=== PATIENT | male | born 1985 | race Caucasian/White ===

== ENCOUNTER 2023-12-06 16:24 | Emergency (ER) | payer OTHER, SELFPAY ==
--- NOTE | 2023-12-06 16:26 | ED.GENADULT ---
HPI - General Adult General Chief complaint: Ear Stated complaint: ears/dry skin Time Seen by Provider: 12/06/23 16:33 Source: patient and RN notes reviewed Mode of arrival: ambulatory Limitations: no limitations History of Present Illness HPI narrative: 37-year-old male presents to the [facility] with complaints dry flaky skin and itchy ear canals for several months Reports he has had dry patches on his skin, face, right eyelid and eyebrow, none seen on exam Patient denies any past medical history. Patient does use Q-tips, ear buds when working out and ear protection at work Related Data Home Medications Medication Instructions Recorded Confirmed No Home Medications 12/06/23 12/06/23 Allergies Allergy/AdvReac Type Severity Reaction Status Date / Time No Known Allergies Allergy Verified 12/06/23 16:32 Review of Systems Review of Systems: All systems reviewed & are unremarkable except as noted in HPI and below Constitutional: Constitutional: Reports no additional constitutional complaints Eyes: Eyes: Reports no additional eye complaints ENT: Reports as per HPI Cardiovascular: Cardiovascular: Reports no additional cardiovascular complaints, Denies chest pain and Denies dyspnea Respiratory: Respiratory: Reports no additional respiratory complaints, Denies chest congestion, Denies cough and Denies dyspnea Gastrointestinal: Gastrointestinal: Reports no additional gastrointestinal complaints, Denies abdominal pain, Denies nausea and Denies vomiting Musculoskeletal: Musculoskeletal: Reports no additional musculoskeletal complaints Integumentary/Breasts: Skin/Breast: Reports system reviewed and no additional complaints, except as docu Neurologic: Reports system reviewed and no additional complaints, except as documented Psychiatric: Psychiatric: Reports no additional psychiatric complaints Allergic/Immunologic: Allergic/Immunologic: Reports no additional allergic/immunologic complaints [facility] Past Medical History Medical History (Updated 12/06/23 @ 19:41 by Maddison Su APRN) Patient denies medical problems Surgical History Surgical History (Updated 12/06/23 @ 19:41 by Maddison Su APRN) H/O inguinal hernia repair Social History Social History (Updated 12/06/23 @ 19:41 by Maddison Su APRN) Living arrangements: with family Gender identity (if verbalized by the patient): Male Comments At the time of my signature, I reviewed and agree with the nursing past medical, surgical, social, and family history. There is no relevant family history pertinent to the patient complaint. Exam Const: General: cooperative, healthy appearing, comfortable, no acute distress, well developed, alert and well nourished Nutritional Appearance: well nourished Orientation/consciousness: patient oriented x3 Limitations: no limitations HENMT: Head: normal to inspection Ears: hearing grossly normal bilaterally, external ears normal, TM's normal bilaterally and Abnormal EAC present other (Very dry flaky skin, bilateral); no cerumen impaction, no excessive cerumen, no erythema and no edema Face/Nose/Sinus: Normal external nose present, Normal nares present, Normal nasal mucous membranes and turbinates present, normal facial exam and face symmetric Face and sinus: normal facial exam and face symmetric Mouth: Yes Normal oral and palatal mucosa present, Yes lip normal and Yes moist mucous membranes Throat: posterior oropharynx normal, uvula midline and no uvular edema Eyes: General: appearance normal, both eyes and all related structures Alignment and Position: alignment normal Periorbital: periorbital findings normal Pupils: Equal, round and reactive pupils present EOM: EOMs intact bilaterally Neck: Neck: normal visual inspection, full ROM, no lymphadenopathy and no meningeal signs Chest: Chest palpation & inspection: normal inspection of the chest Resp: Effort & Inspection: normal respiratory effort and able
[2023-12-06 16:29] VITALS: BP 157/95; PULSE 91; RESP 16; TEMP 37.1; O2SAT 99
[2023-12-06 16:45] VITALS: BP 157/95; PULSE 91; RESP 16; TEMP 37.1; O2SAT 99
== END 2023-12-06 16:56 | disposition home or self-care (01) ==
PROVIDERS: Emergency Provider Nurse Practitioner
DX: H93.8X3 Other specified disorders of ear, bilateral (principal)
CPT/HCPCS: 99211; G0463

== ENCOUNTER 2025-03-01 16:09 | Emergency (ER) | payer OTHER, SELFPAY ==
--- OUTSIDE RECORDS SUMMARY | 2025-03-01 16:11 | XMS_ITS | Clinical Summary ---
Author Organization [facility] Address [address], [facility] [address] [place] [address] Phone Care Team Providers Care Physical Laboratory Assistant Name Role Phone Joe Nascimento MD Primary Care Provider [phone] Medications meloxicam (MOBIC) 7.5 MG Tablet Take 15 mg by mouth daily. Active mebendazole (VERMOX) 100 MG Chewable Tablet Take 1 Tablet by mouth daily. Take now and repeat dose in 2 weeks 2 Tablet 12/07/2024 Active amLODIPine (NORVASC) 10 MG Tablet TAKE 1 TABLET BY MOUTH EVERY DAY 30 Tablet 3 12/28/2024 Active Active Problems Problem Noted Date Diagnosed Date Essential hypertension, benign 10/07/2024 Generalized anxiety disorder 07/14/2024 Hyperhidrosis Encounters Date Type Department Care Team Description 12/28/[facility] [address] [place] [address] Joe Nascimento MD Medication Refill 12/07/2024 Telephone [facility] Internal Medicine [facility] [address] [place] [address] Joe Nascimento MD from Last 3 Months Family History Medical History Relation Name Comments No Known Problems Brother Diabetes Father No Known Problems Mother No Known Problems Sister Relation Name Status Comments Brother Alive Father Alive Mother Alive Sister Alive Social History Tobacco Use Types Packs/Day Years Used Date Smoking Tobacco: Former Cigarettes 0.5 8 Passive Smoke Exposure: Past Smokeless Tobacco: Never Tobacco Cessation:Counseling Given: No Alcohol Use Standard Drinks/Week Comments No 0 (1 standard drink = 0.6 oz pur e alcohol) [facility] Utilities Answer Date Recorded In the past 12 months has th e electric, gas, oil, or water company threatened to shut off services in your home? No 10/07/2024 Social Connection and Isolation Panel Answer Date Recorded In a typical week, how many times do you talk on the phone with family, friends, or neighbors? Twice a week 10/07/2024 How often do you get together with friends or re latives? Once a week 10/07/2024 Attends [employer] Services Not on file 10/07 Active Member of Clubs or Organizations Not on f ile 10/07/2024 Attends Club or Organization Meetings Not on oniel e 10/07/2024 Marital Status Not on file 10/07/2024 AUDIT-C Answer Date Recorded Q1: How often do you have a drink containing alc ohol? 2-4 times a month 10/07/2024 Q2: How many drinks containi ng alcohol do you have on a typical day when you are drinking? 5 or 6 10/07/2024 Frequency of Binge Drinking Not on file 09/13 Overall Financial Resource Strain (CARDIA) Answe r Date Recorded How hard is it for you to pa y for the very basics like food, housing, medical care, and heating? Somewhat hard 10/07/2024 PHQ-2 Answer Date Recorded Total Score - Questions 1-9 0 08/13 [facility] - Occupational Stress Questionnaire Answer Date Recorded Do you feel stress - tense, restless, nervous, or anxious, or unable to sleep at night because your mind is troubled all the time - these days? Rather much 10/07/2024 Exercise Vital Sign Answer Date Recorde d On average, how many days pe r week do you engage in moderate to strenuous exercise (like a brisk walk)? 5 days 10/07/2024 On average, how many minutes do you engage in exercise at this level? 70 min 10/07/2024 Hunger Vital Sign Answer Date Recorded Within the past 12 months, y ou worried that your food would run out before you got the money to buy more. Never true 10/07/19 25 Within the past 12 months, t he food you bought just didn't last and you didn't have money to get more. Never true 10/07/2024 PRAPARE - Transportation Answer Date Re corded In the past 12 months, has l ack of transportation kept you from medical appointments or from getting medications? No 09/13 In the past 12 months, has l ack of transportation kept you from meetings, work, or from getting things needed for daily living? No 10/07/2024 Housing Stability Vital Sign Answer Kareem e Recorded In the last 12 months, was t here a time when you were not able to pay the mortgage or rent on time? No 10/07/2024 In the past 12 months, how m any times have you moved where you were living? 0 10/07/2024 At any time in the past 12 m [facility], were you homeless or living in a custodial (including now)? No 10/07/2024 Sexually Active Control Partners Comments Yes Sex and Gender Information Value Date Recorded Sex Assigned at Not on file Legal Sex Male 12:03 AM CDT Gender Identity Not on file Sexual Orientation Not on file Last Filed Vital Signs Vital Sign Reading Time Taken Comments Blood Pressure 158/98 10/07/2024 7:58 AM HEMOTHERAPIST Pulse 94 10/07/2024 7:58 AM HEMOTHERAPIST Temperature 36.5 C (97.7 F) 10/07/2024 7:58 AM HEMOTHERAPIST Respiratory Rate 17 08/08/2023 7:59 PM HEMOTHERAPIST Oxygen Saturation 97% 10/07/2024 7:58 AM HEMOTHERAPIST Inhaled Oxygen Concentration - - Weight 94.3 kg (208 lb) 10/07/2024 7:58 AM HEMOTHERAPIST Height 188 cm (6' 2) 10/07/2024 7:58 AM HEMOTHERAPIST Body Mass Index 26.71 10/07/2024 7:58 AM HEMOTHERAPIST Plan of Treatment Health Maintenance Due Date Last Done Comments Hepatitis C Virus (HCV) Screening 1983 Human Papillomavirus (HPV) Immunization (1 - Male 3-dose series) 12/10/1998 Hepatitis B Immunization (1 of 3 - 19+ 3-dose series) 12/10/2002 SARS-COV-2 Immunization ( season) 2024 Influenza Immunization (#1) 2025 Respiratory Syncytial Virus (RSV) Immunization (Adult) (1 - 1-dose 75+ series) 12/10/2058 DTaP/Tdap/Td Immunization Discontinued 01/19/2022 TdaP Immunization Completed 01/19/2022 Meningococcal Immunization (ACWY) Aged Out No longer eligible based on patient's age to complete this topic Pneumococcal Immunization Combined Aged Out No longer eligible based on patient's age to complete this topic Rotavirus Immunization Aged Out No lo nger eligible based on patient's age to complete this topic Insurance [facility] Care Teams Physical Laboratory Assistant Relationship Specialty Start Date End Date Joe Nascimento MD [address] [place] [address] PCP - General Internal Medicine 08/03/24
--- OUTSIDE RECORDS SUMMARY | 2025-03-01 16:11 | XMS_ITS | Clinical Summary ---
Author Organization [facility] [employer] Address [address] [place] [address] Care Team Providers Care Machinist Outside Name Role Phone Unknown, Provider Primary Care Provider Unavaila ble Source Comments [facility],non-owned Affiliates and Associated Physician Practices is amultiple site organization consisting of ambulatory clinics and hospital sitesin [place], [place], [place] and [place]. This disclosure is being madepursuant to the Care Everywhere program and may not contain all information available regarding this patient. Last updated 18.[facility] [employer] Allergies No known active allergies Medications * Be aware that medications may not be up to date on this document. Alwaysverify current medications with the patient. azithromycin (ZITHROMAX) 250 MG tabletIndicatio ns:Pharyngitis Take 2 tablets now, then 1 tablet daily for 4 days. Reasons: Throat Infection 6 Tab 7 Active Social History Tobacco Use Types Packs/Day Years Used Date Smoking Tobacco: Never Sex and Gender Information Value Date Recorded Sex Assigned at Not on file Legal Sex Male 9:54 AM PROGRAM CLINICIAN Gender Identity Not on file Sexual Orientation Not on file Last Filed Vital Signs Vital Sign Reading Time Taken Comments Blood Pressure 140/78 10/01/2016 10:04 AM PROGRAM CLINICIAN Pulse 108 10/01/2016 10:04 AM PROGRAM CLINICIAN Temperature 37.6 C (99.6 F) 10/01/2016 10:04 AM PROGRAM CLINICIAN Respiratory Rate 18 10/01/2016 10:04 AM PROGRAM CLINICIAN Oxygen Saturation 97% 10/01/2016 10:04 AM PROGRAM CLINICIAN Inhaled Oxygen Concentration - - Weight 79.4 kg (175 lb) 10/01/2016 10:04 AM PROGRAM CLINICIAN Height 188 cm (6' 2) 10/01/2016 10:04 AM PROGRAM CLINICIAN Body Mass Index 22.47 10/01/2016 10:04 AM PROGRAM CLINICIAN Plan of Treatment Health Maintenance Due Date Last Done Comments LIPID TESTING 1983 HIV SCREENING 12/10/1998 HEPATITIS C SCREENING 12/06/2001 DTAP/TDAP/TD VACCINES (1 - Tdap) 12/10/2002 HEPATITIS B VACCINE (1 of 3 - 19+ 3-dose series) 12/10/2002 HPV VACCINE (1 - 3-dose SCDM series) 12/10/2010 COVID-19 VACCINE (1 - 2023-2 5 season) 2024 DEPRESSION SCREENING 08/12/2024 INFLUENZA VACCINE (#1) 2025 ZOSTER VACCINE (1 of 2) 12/10/2033 HIB VACCINE Aged Out No longer eligi ble based on patient's age to complete this topic MENINGOCOCCAL (Group B) VACC INE SHARED DECISION-MAKING Aged Out No longer eligibl e based on patient's age to complete this topic MENINGOCOCCAL GROUPS A/C/Y/W VACCINE Aged Out No longer eligible b ased on patient's age to complete this topic PNEUMOCOCCAL VACCINE Aged Out No long er eligible based on patient's age to complete this topic Insurance Care Teams Machinist Outside Relationship Specialty Start Date End Date Unknown, Provider PCP - General 10/01/16
--- OUTSIDE RECORDS SUMMARY | 2025-03-01 16:11 | XMS_ITS | Data Portability ---
Author Organization [facility] Address [address] [place] [address] Assessment No assessment recorded. Plan of Treatment Reminders Order Date Submit Date Provider Last Modified By Organization Details Last Modified Time Details Appointments None recorded. Lab None recorded. Referral None recorded. Procedures None recorded. Surgeries None recorded. Imaging None recorded. Medication Orders mometasone 0.1 % topical cream 2023 024 [id number], [address], [place], [address], 10:16:40 Patient TargetsNo targets recorded. Patient InstructionsNo instructions recorded. Reason for Referral None Reported. Medical Equipment None Reported. Allergies No known drug allergies Medications Name Sig Start Date Stop Date Status Note LastModified by Organization Details LastModified Time triamcinolo ne acetonide 0.5 % topical cream APPLY TO AFFECTED AREA TWICE A DAY FOR 7 DAYS 04/21 completed Not Available Not Available Not Available meloxicam 7.5 mg tablet TAKE 1 TABLET(S) BY MOUTH DAILY DIRECTED WITH FOOD active Not Available Not Available No t Available naproxen 500 mg tablet TAKE 1 TABLET BY MOUTH TWICE A DAY NEEDED FOR MILD OR MORE SEVERE PAIN 04/21 completed Not Available Not Available Not Available mometasone 0.1 % topical cream APPLY SPARINGLY TO AFFECTED AREA EVERY DAY active Not Available Not Available No t Available fluocinolon e acetonide oil 0.01 % ear drops ADMINISTE R 5 DROPS INTO EACH EAR 2 TIMES A DAY FOR 7 DAYS. 04/21 completed Not Available Not Available Not Available Vitals Date Recorded Body height Body mass index (BMI) Body weight Heart rate Respiratory rate Body temperature Systolic And Diastolic Provider Name and Address Organization Details Last Updated DateTime 4 187.96 cm 26.2 kg/m2 54781.7 7 g 84 /min 16 /min 98.2 [degF] 153/103 mm[Hg] Suni Morris MA [facility] 10:02:42 Social History Question Answer Notes LastModified by Organizat ion Details LastModified Time Tobacco Smoking Status Never Smoker Suniaury Morris MA null, [facility] 04/21/2024 09:59:19 Are You Blind Or Do You Have Difficulty Seeing? No Information n ot available 04/21/2024 What Is Your Level Of Caffeine Consumption? Heavy Information not available 04/21/2024 In The 14 Days Before Symptom Onset, Have You Had Close Contact With A Laboratory-confirm ed COVID-19 While That Case Was Ill? No Information n ot available 04/21/2024 In The 14 Days Before Symptom Onset, Have You Had Close Contact With A Person Who Is Under Investigation For COVID-19 While That Person Was Ill? No Information not available 04/21/2024 Have You Been To An Area Known To Be High Risk For COVID-19? No Information not available 04/21/2024 Are You Deaf Or Do You Have Serious Difficulty Hearing? No Information not available 04/21/2024 What Type Of Diet Are You Following? REGULAR Information n ot available 04/21/2024 Who Is Your Employer? [employer] Information not available 04/21/2024 What Was The Date Of Your Most Recent Tobacco Screening? 04/21/2024 Information not available 04/21/2024 Do You Have Any Pets? No Information not available 04/21/2024 Sex: Male Functional Status Question Answer Note LastModified by Organizat ion Details LastModified Time Do you use any illicit or recreational drugs? No Information not available 04/21/2024 Do you or have you ever used any other forms of tobacco or nicotine? No Information not available 04/21/2024 What is your level of alcohol consumption? Occasional Rarely Information not available 04/21/2024 Are you currently employed? Yes Information not available 04/21/2024 What is your exercise level? Occasional Information not available 04/21/2024 What type of noise exposure are you exposed to? Industrial Information not available 04/21/2024 Mental Status Question Answer Note LastModified by Organization D etails LastModified Time Do you feel stressed (tense, restless, nervous, or anxious, or unable to sleep at night)? [id number] Information not available 04/21/2024 Family History Nothing Reported. Medical History No medical history recorded. Past Encounters Encounter ID Performer Location Encounter Start Date Encounter Closed Date Diagnosis/Indication Diagnosis SNOMED-CT Code Diagnosis ICD10 Code Diagnosis Note [id number] Sam Aguillon MD [facility] (Adult Med) [address] [place] [address] 04/21/2024 09:48:03 04/24/2024 12:57:26 Dermatitis of external ear 354022798 H60.93 Health Concerns Section Related Observation LastModified by Organization Detai ls LastModified Time None Recorded Concern Status LastModified by Organization Details LastModified Time None Recorded Advance Directives Directive None Recorded Payers Insurance Date Sequence Insurance Name Policy Number Policy Jesus Covered Member ID Jesus Member ID Guarantor Name 05/30/2024 1 [facility] [id number] Isak Edie [id number] Isak Edie Notes Date Note Type Note Provider Name and Address Organization Details Recorded Time 04/21/2024 text/html Pt complaining o f dry itchy ears for the last 6 months. He uses q-tips but not drops Sam Aguillon MD Attn: [address] [facility], [place], [address], [facility] 04/21/2024 10:16:53
[2025-03-01 16:14] VITALS: BP 149/96; PULSE 92; RESP 20; TEMP 37.1; O2SAT 98
--- NOTE | 2025-03-01 16:14 | ED_ITS ---
HPI - Skin/Abscess/Foreign Bdy General Chief complaint: Skin/Abscess/Foreign Body Stated complaint: wasp sting / swelling Time Seen by Provider: 03/01/25 16:17 Source: patient, RN notes reviewed and old records reviewed Mode of arrival: ambulatory Limitations: no limitations History of Present Illness HPI narrative: 39-year-old male presents to the [facility] with multiple stings to the right leg, left leg and right ear. States that he was stung yesterday. Did take Benadryl last night, no other treatment prior to arrival. States that he was done 2 weeks ago and this time the swelling is worse than it was 2 weeks ago. Onset (ago): day(s) (1) Related Data Home Medications ?Medication ?Instructions ?Recorded ?Confirmed ?Last Taken ?Type amlodipine 10 mg tablet mg 03/01/25 Unknown History Allergies Allergy/AdvReac Type Severity Reaction Status Date / Time No Known Allergies Allergy Verified 03/01/25 16:20 Review of Systems Review of Systems: All systems reviewed & are unremarkable except as noted in HPI and below Constitutional: Constitutional: Reports no additional constitutional complaints ENT: Reports system reviewed and no additional complaints, except as documented Cardiovascular: Cardiovascular: Reports no additional cardiovascular complaints, Denies chest pain and Denies dyspnea Respiratory: Respiratory: Reports no additional respiratory complaints, Denies chest congestion, Denies cough and Denies dyspnea Musculoskeletal: Musculoskeletal: Reports no additional musculoskeletal complaints Integumentary/Breasts: Skin/Breast: Reports as per HPI PMFSH Past Medical History Medical History Patient denies medical problems Surgical History Surgical History H/O inguinal hernia repair Social History Social History Living arrangements: with family Gender identity (if verbalized by the patient): Male Comments At the time of my signature, I reviewed and agree with the nursing past medical, surgical, social, and family history. There is no relevant family history pertinent to the patient complaint. Exam Const: General: cooperative, healthy appearing, comfortable, no acute distress, well developed, alert and well nourished Nutritional Appearance: well nourished Orientation/consciousness: patient oriented x3 Limitations: no limitations HENMT: Head: normal to inspection Ears: hearing grossly normal bilaterally and external ears normal Mouth: Yes Normal oral and palatal mucosa present, Yes lip normal, Yes tongue normal and Yes moist mucous membranes Throat: posterior oropharynx normal, uvula midline and no uvular edema Eyes: General: appearance normal, both eyes and all related structures Alignment and Position: alignment normal Neck: Neck: normal visual inspection, full ROM, no lymphadenopathy and no meningeal signs Chest: Chest palpation & inspection: normal inspection of the chest Resp: Effort & Inspection: normal respiratory effort and able to speak in complete sentences Auscultation: clear to auscultation bilaterally, no crackles, no rales, no rhonchi and no wheezes Cardio: Rate: regular rate Skin: General skin exam: normal color and no rashes or lesions noted Other: Multiple stings noted to the bilateral lower legs, 1 to the right ear. Swelling is noted around the site of the sting. Neuro: General: patient oriented x3, gait normal, moves all extremities and no meningeal signs Cognition (Neuro): normal cognition Speech: normal speech Gait exam (Neuro): Normal gait present Extrem: General: normal to inspection, full ROM, capillary refill normal and normal gait Psych: Appearance: grossly normal and well kempt Mental Status: mental status grossly normal Speech and movement: Normal speech and movement present and Clear speech present Affect: normal affect Attitude: cooperative Course Course Level of Care: Express Care Visit Vital Signs Vital signs: Vital Signs Temperature 98.8 F 03/01/25 16:14 Pulse Rate 92 03/01/25 16:14 Respiratory Rate 03/01/25 16:14 Blood Pressure 149/96 H 03/01/25 16:14 Pulse Oximetry 98 03/01/25 16:14 Oxygen Delivery Room Air 03/01/25 16:14 Temperature 98.8 F 03/01/25 16:14 Pulse Rate 92 03/01/25 16:14 Respiratory Rate 03/01/25 16:14 Blood Pressure 149/96 H 03/01/25 16:14 Pulse Oximetry 98 03/01/25 16:14 Oxygen Delivery Room Air 03/01/25 16:14 Reviewed MDM - Skin/Abscess/Foreign Bdy MDM Narrative Medical decision making narrative: Patient sitting in exam room. Patient is nontoxic stable patient presents with multiple stings. Surrounding area with inflammation, histamine reaction. Discussed [id number] treatments. Will prescribe prednisone. Patient appropriate for outpatient treatment with close follow-up Discharge instructions reviewed with patient, as well as provided in writing per nursing staff. The instructions also include specific and strict return/GO TO THE ER as well as f/u information. All questions have been answered, and the patient deny any further questions with discharge and discharge plan. Some parts of this dictation were generated by voice recognition software and may contain typographical and/or grammatical inaccuracies. Differential Diagnosis Differential diagnosis: Likely abscess of skin or subcutaneous tissue, urticaria, cellulitis, insect bites and contact dermatitis Critical Care Time Critical Care Time Critical Care Time: No Discharge Plan Discharge Clinical Impression: Sting from hornet, wasp, or bee Qualifiers: Encounter type: initial encounter Injury intent: accidental or unintentional Qualified Code(s): T63.451A - Toxic effect of venom of hornets, accidental (unintentional), initial encounter Patient Disposition: Home Condition: Stable Instructions: Insect Bite or Sting (ED), General Allergic Reaction (ED) Additional Instructions: The most important part of your care is follow up with Primary care provider. Take Benadryl 25-50 mg every 8 hours for itching Take Zyrtec every day Take Pepcid 20mg daily for 7 days Take the steroids starting today and then take daily in the morning Avoid hot showers, Take cool showers. Hot showers will make rashes worse Apply cool compresses every 2-3 hours for 15 minutes Go to the ER for new or worsening symptoms such as shortness of breath. Patient Language: [place] Prescriptions: New prednisone 20 mg tablet See Rx Instructions .Route .COMPLEX Qty: 9 0RF Rx Instructions: Take 40 mg daily for 3 days, 20 mg daily for 3 days No Action amlodipine 10 mg tablet Follow-up/Referrals: UNKNOWN,DOCTOR [Primary Care Provider] - Stand Alone Forms: Work/School Release IP Time of Disposition: 16:26
== END 2025-03-01 16:30 | disposition home or self-care (01) ==
PROVIDERS: Emergency Provider Nurse Practitioner
DX: T63.461A Toxic effect of venom of wasps, accidental (unintentional), initial encounter (principal)
CPT/HCPCS: 99213; G0463